=== PATIENT | male | born 1965 | race Two or more races ===

== ENCOUNTER 2022-08-19 13:10 | Emergency (ER) | payer MEDICAID ==
[~2022-08-19] VITALS: Ht 167.6 cm; Wt 90.0 kg
[2022-08-19 15:47] VITALS: BP 138/90
[2022-08-19] MEDS ORDERED: GABA300C10 PO (17:58)
== END 2022-08-19 18:39 | disposition home or self-care (01) ==
LOC: ER 13:10
DX: M47.22 Other spondylosis with radiculopathy, cervical region (principal)
CPT/HCPCS: 36415; 72040; 84484; 93005

== ENCOUNTER 2022-09-13 12:55 | Emergency (ER) | payer MEDICAID ==
[~2022-09-13] VITALS: Ht 167.6 cm; Wt 82.0 kg
[~2022-09-13 12:55] MED LIST: GABA300C10 PO
[2022-09-13 13:44] LABS: Albumin 4.7 g/dL (3.4-5.0); Calcium 9.6 mg/dL (8.5-10.1); Potassium 3.9 mmol/L (3.5-5.1)
[2022-09-13 13:47] LABS: Bilirubin, Total 0.6 mg/dL (0.2-1.0); Total Protein 8.6 g/dL (6.4-8.2)
[2022-09-13 14:05] LABS: Basophils # (auto) 0 10 ^3/uL (0-0.2); Basophils % (auto) 0.7 % (0.0-2.0); Eosinophils # (auto) 0 10 ^3/uL (0-0.8); Eosinophils % (auto) 0.8 % (0.0-7.0); Hemoglobin 13.9 g/dL (13.5-17.5); Lymphocytes # (auto) 1.1 10 ^3/uL (0.4-5.4); Lymphocytes % (auto) 19.8 % (10.0-50.0); Mean Corpuscular Hgb Conc. 34.7 g/dL (32.0-36.0); Mean Corpuscular Volume 86.5 fL (80.0-100.0); Monocytes # (auto) 0.3 10 ^3/uL (0-1.3); Monocytes % (auto) 6.2 % (0.0-12.0); Neutrophils % (auto) 72.5 % (37.0-80.0); Nucleated Red Blood Cells % 0.2 %; Red Blood Cells 4.62 10^6/uL (4.5-5.90); Red Cell Distribution Width 13.7 % (11.8-14.3); White Blood Cell 5.6 10^3/uL (4.4-10.8)
[2022-09-13 17:35] VITALS: BP 143/84
== END 2022-09-13 17:44 | disposition home or self-care (01) ==
LOC: ER 12:55
DX: R07.89 Other chest pain (principal); M50.10 Cervical disc disorder with radiculopathy, unspecified cervical region; Z79.899 Other long term (current) drug therapy
CPT/HCPCS: 36415; 71045; 80053; 84484; 85025; 93005; 99285; J7030